=== PATIENT | male | born 1985 | race Caucasian/White ===

== ENCOUNTER → 2018-04-01 17:23 | Outpatient (CLI) | payer OTHER, MEDICARE | END | disposition home or self-care (01) | LOC: D.RAD 17:15 | DX: M54.2 Cervicalgia (principal) ==

== ENCOUNTER → 2020-02-12 16:18 | Outpatient (CLI) | payer OTHER, MEDICAID | END | disposition home or self-care (01) | LOC: D.MRI 16:18 | PROVIDERS: ATTEND Orthopaedic Surgery | DX: M25.562 Pain in left knee (principal) ==

== ENCOUNTER 2020-03-08 05:18 | Day surgery (SDC) | payer OTHER, MEDICAID ==
[~2020-03-08] VITALS: Ht 177.8 cm; Wt 97.5 kg
[~2020-03-08 05:18] MED LIST: CELEBREX50 MG; ELAVIL10 MG PO; HYDROCODON-ACE1 EA10; LYRICA100 MG PO
[2020-03-08 05:58] LABS: HEMATOCRIT 35.1 % (42.0-54.0); HEMOGLOBIN 10.9 g/dL (13.5-17.5); MCH 26.4 pg (26.0-34.0); MCHC 31.1 g/dL (31.0-37.0); MEAN PLATELET VOLUME 9.7 fL (7.4-10.4); RBC 4.13 10x6/uL (4.20-6.10); RDW 14.9 % (11.5-14.5); WBC 4.8 10x3/uL (4.8-10.8)
[2020-03-08] MEDS ORDERED: ZANAFLEX4 MG PO (06:21)
[2020-03-08 06:29] VITALS: BP 147/80; Ht 177.8 cm; Wt 97.5 kg
--- NOTE | 2020-03-08 08:22 | NUR ---
0807 MOTHER AT BEDSIDE, STATES HAS A WALKER AT HOME IF NEEDED.
--- NOTE | 2020-03-08 08:32 | NUR ---
0825 ICE CAP TO KNEE AND LEMON [place] SERVED
--- NOTE | 2020-03-09 08:58 | OP ---
PATIENT NAME: THANG MONTILLA MEDICAL RECORD: [id number] :87 LOCATION:D.OPS ADMISSION DATE: SURGEON: ANATOLY OCMAPO DO DATE OF OPERATION: 03/08/2020 PROCEDURE PERFORMED: Left knee arthroscopy, partial medial and partial lateral meniscectomy and abrasion chondroplasty patella. PREOPERATIVE DIAGNOSIS: Left knee medial and lateral meniscal tears and grade III chondromalacia patella. POSTOPERATIVE DIAGNOSIS: Left knee medial and lateral meniscal tears and grade III chondromalacia patella. INDICATIONS: Mr. Montilla is a 34-year-old male who presented to my office with left knee pain. He has had quite some time, has tried an injection and all manner of nonoperative treatment. He got an MRI showing the above findings. I informed him of the risks including, retear, continued pain, arthrofibrosis, need for further surgery, blood clots, infection and even and he signed the consent. SURGEON: Anatoly Ocampo DO DESCRIPTION OF PROCEDURE: The patient was taken to the operative suite, laid in the supine position, given general anesthetic and LMA was placed. He was given 2 grams of Ancef preoperatively. The left lower extremity was then prepped and draped in sterile fashion. Time out was performed. Everyone was in agreement with the correct side, site, patient, and procedure. I then began by establishing the lateral portal with an 11-blade scalpel. Trocar was then entered into the joint. We inspected the suprapatellar pouch, medial and lateral gutters. No loose body seen there, but I did see the grade III chondromalacia patella. I then went to the medial compartment and established a medial portal with an 18 gauge spinal needle and 11-blade scalpel. Trocar was entered in the joint and then brought in a probe and also noted the medial meniscal tear trimmed it out with a shaver. I then probed the ACL and it was in good repair. I [id number] in the knee. I went to the lateral compartment, the lateral meniscus was torn about the same spot as the medial meniscus, which was in the middle horn of the meniscus. This was trimmed out with a shaver as well and then brought the knee into extension and used the shaver to shave off the loose cartilage on the patella doing an abrasion chondroplasty. I then turned off the water and turned on the suction and Vicente Navarro, certified surgical assistant oceanographer student closed under my direct supervision with 4-0 Monocryl in inverted interrupted fashion. Steri-Strips, Adaptic, 4 x 4's, ABD, Webril, Celio wrap, ANDREW hose stockings were placed on the patient. He was awakened and taken to recovery in stable condition. BLOOD LOSS: Minimal. COMPLICATIONS: None. TRANSINT:[id number] Voice Confirmation ID: [id number] DOCUMENT ID: [id number] OPERATIVE REPORT [id number] THANG MONTILLA,ANATOLY Olivarez DO at 0858 CC: [id number] DICTATION DATE: 03/08/20 105 DIRECTOR ORACLE: 03/08/201958 [facility] 03/08/20 [facility] [address] [place] [address]
== END 2020-03-08 09:15 | disposition home or self-care (01) ==
LOC: D.OPS 05:18 → D.PAN 16:00
PROVIDERS: Anesthesiology; ATTEND Orthopaedic Surgery
DX: S83.262A Peripheral tear of lateral meniscus, current injury, left knee, initial encounter (principal); X58.XXXA Exposure to other specified factors, initial encounter; M25.562 Pain in left knee